=== PATIENT | female | born 1940 | race Caucasian/White ===

== ENCOUNTER → 2021-02-08 | Outpatient (CLI) | payer BC ==
[~2021-02-08] MED LIST: GLUC-11 PO; HYDR-2761 PO; MIRT15TA3 PO; MULT-445 PO; SIMV5TAB14 PO; Vitamin B12 PO
== END ==
LOC: LAB 09:34
PROVIDERS: ATTEND Surgery
DX: Z01.812 Encounter for preprocedural laboratory examination (principal); Z20.822 Contact with and (suspected) exposure to COVID-19; R92.8 Other abnormal and inconclusive findings on diagnostic imaging of breast
CPT/HCPCS: U0003; U0005

== ENCOUNTER 2021-02-10 07:12 | Day surgery (SDC) | payer BC ==
[~2021-02-10] VITALS: Ht 152.4 cm; Wt 44.0 kg
[~2021-02-10 07:12] MED LIST changes: -HYDR-2761 PO; +HYDROmorphone 2 MG/ML VIAL IVP PRN; +IV RINGERS,LACTATED 1000ML 1,000 ML IV SCH; +LIDOCAINE 1% Multi-Dose 20 ML VIAL. INJ ONE; +MORPHINE SULFATE 2 MG/ML VIAL. IVP PRN; +ceFAZolin SODIUM IV Push 1 GM VIAL. IVP PRN; +fentaNYL PF VIAL 100 MCG/2 ML VIAL IVP PRN
[2021-02-10 07:58] VITALS: BP 125/59
[2021-02-10] MEDS ORDERED: BUPIVACAINE-EPI 0.5% 30 ML VIAL KIT. ONE (10:06)
[2021-02-10] MEDS ORDERED: LIDOCAINE 1%/EPI 1:100,000 20 ML VIAL. ONE (10:07)
[2021-02-10] MEDS ORDERED: ONDANSETRON PF 4 MG/2 ML VIAL. ONE (10:15)
[2021-02-10] MEDS ORDERED: LIDOCAINE 2% PF 5 ML VIAL. ONE (10:15)
[2021-02-10] MEDS ORDERED: DEXAMETHASONE SOD PHOS 4 MG/ML VIAL ONE (10:15)
[2021-02-10] MEDS ORDERED: PROPOFOL 10 MG/ML (20ML) VIAL. IV ONE (10:15)
[2021-02-10] MEDS ORDERED: SEVOFLURANE 61 TO 120 MINUTES. IH ONE (10:16)
[2021-02-10] MEDS ORDERED: PHENYLEPHRINE in 0.9% NACL PF 1 MG/10 ML SYRINGE. IV ONE (10:46)
--- NOTE | 2021-02-10 11:32 | PDOC4 ---
Operative Note Operative Note Operative Note: Preoperative Diagnosis: Right breast mass Postoperative Diagnosis: Same Procedure: Excisional right breast biopsy with needle localization Surgeon: [employer] Manager: ALVERTO Morgan Anesthesia: General EBL: 10 mL Specimen: Right breast biopsy to pathology Drains: None Complications: None Indication: The patient is an 80-year-old female who recently underwent a core needle biopsy for a radiographically detected right breast mass. The results were benign but felt by radiology to be discordant. We recommend a wider surgical excisional biopsy. The risks of surgery were discussed which include bleeding, infection, wound healing problems, scar tissue, pain, anesthetic risk, potential need for additional surgery procedure. She understands and would like to proceed. Description: The patient went initially to radiology where she underwent needle localization of the area in question. She was then brought to the operating room and placed supine in the operating table. General anesthesia was performed. The right breast was prepped with ChloraPrep and draped in a standard surgical manner. The wire was exiting in the lateral aspect of the breast at the 9 o'clock position. An adjacent incision was made in the skin lines with a scalpel. Cautery dissection was carried down to the breast paren chyma. The wire was identified and delivered into the wound. With cautery dissection a specimen of breast tissue around the distal portion of the wire was excised without difficulty. The specimen was then sent to radiology and radiographs confirmed the presence of the mass and clip to be present. Hemostasis was achieved with cautery. The subcutaneous tissue was approximated with 3-0 Vicryl. The skin was closed with 4-0 Monocryl. Steri-Strips and a sterile dressing were applied. The patient tolerated the procedure well and was sent to the recovery room in stable condition. At the end of the case all counts were correct. COLE TRINIDAD MD February 10, 2021 11:32
--- NOTE | 2021-02-10 11:35 | DISCH ---
DISCHARGE INSTRUCTIONS Condition on Discharge Condition on Discharge: Stable Activity After Discharge Activity Instructions for Disc: Resume previous activity Diet after Discharge Diet after Discharge: Regular Wound Incision Care Wound/Incision Care: Other, see below (keep dressing clean and dry X 72 hours, may then remove and shower) Follow-Up Follow up with: Dr Trinidad in office in 1 week, call for appointment [phone] COLE TRINIDAD MD February 10, 2021 11:35
[2021-02-10] MEDS ORDERED: HYDROcodone/APAP 5/325MG 1 TAB TABLET PO ONE (12:00)
[2021-02-10] MEDS ORDERED: HYDR-2761 PO (12:01)
[2021-02-10 12:20] VITALS: BP 133/60
--- NOTE | 2021-02-10 12:50 | RAD ---
EXAM: Sonographic guided right breast needle-wire localization; right breast post localization mammog dianna; right breast specimen radiograph. HISTORY: 80-year-old female presents for needle wire localization of a lesion within the 10:00 positi on of the right breast demonstrated on prior sonograms. Sonographic and biopsy of this lesion demonst rated possible discordant pathology results. Surgical excision is performed for definitive diagnosis. TECHNIQUE: The risks of the procedure discussed with the patient and written and verbal consent was o btained. A timeout was performed. Sonographic imaging of the right breast was performed and the lesio n of concern at the 10:00 position was identified. The skin overlying this location was sterilely pre pped, draped and infiltrated with 1 percent lidocaine. A needle-wire system was advanced through the lesion of concern and adjacent to the biopsy clip. The wire was deployed and secured to the skin surf amaris. A post biopsy mammogram demonstrates the wire through the lesion of concern. The biopsy clip is located approximately 3 mm posterior and 5 mm superior distal aspect of the wire proximal to the wire hook. This is adjacent to the lesion of concern. A surgical specimen radiograph demonstrates inclusion of the lesion of concern, clustered calcificati ons and the biopsy clip. IMPRESSION: Successful sonographic guided localization of a mass and adjacent clip within the 10:00 p osition of the right breast and inclusion of the lesion of concern and biopsy clip with a surgical sp ecimen. Electronically signed by: Felicia Ba MD (02/10/2021 12:48 PM) [id number]
--- NOTE | 2021-02-12 14:10 | PATHOLOGY ---
[facility] Accession Number: [id number] . 01 Material submitted: . breast - RIGHT BREAST BIOPSY. Modifiers: right . 01 Clinician provided ICD-10: [id number] . 01 Clinical history: . ABNORMAL MAMMOGRAM, RIGHT BREAST BIOPSY NEEDLE LOCALIZATION . 02 Diagnosis: Breast tissue, wire localized right breast biopsy: - Previous biopsy site showing biopsy clip with scarring, chronic inflammation, and focal cholesterol and foreign body granulomatous reaction. - Fibrocystic changes with the following components: - Stromal fibrosis. - Duct ectasia. - Cystic change. - Apocrine metaplasia, focal. - Sclerosing adenosis, focal. - Few microcalcifications identified. (JPM:shaq; 02/11/2021) [facility] 02/12/2021 0811 Local . 02 Comment: There is no atypia or evidence of malignancy. (JPM:shaq; 02/11/2021) . 02 Electronically signed: . Neal Cervantes MD, Pathologist NPI- [id number] . 01 Gross description: . Fixative: formalin Labeled: Right breast biopsy Specimen received is an intact lumpectomy with a guidewire in situ Oriented: No orientation Dimensions: 5.5 x 4.5 x 0.8 cm Weight: 13 gms . The specimen is inked black and sectioned to reveal predominantly condon-yellow fibrofatty tissue and 10% lundberg white fibrous tissue without obvious lesion. . Biopsy clip: Slice cassette A7 (slice 7 of 15) Uninvolved breast parenchyma: fibrofatty . Entirely sequentially submitted A1-A 15. . The specimen is removed from the patient at 1112 hours and placed in formalin at 1145 hours on Monday, February 10, 2021. The specimen is removed from formalin at 11:30pm. The specimen is in formalin for greater than 6 hours and less than 72 hours. ([facility]; 02/10/2021) [facility] 02/10/2021 1710 Local . 02 Pathologist provided ICD-10: N60.11, N60.31, N60.41, N60.81, N60.21, N61.0 . 02 CPT . 649275 Specimen Comment: A courtesy copy of this report has been sent to [phone] Specimen Comment: Report sent to Performed at: [address] [facility] [address], [place] [id number] MD Audi Mcknight MD Phone: [phone] Performed at: 02 [facility] [address] [place] [id number] MD Neal Cervantes MD Phone: [phone]
== END 2021-02-10 12:47 | disposition home or self-care (01) ==
LOC: SURG 07:12
PROVIDERS: ATTEND Surgery
DX: R92.8 Other abnormal and inconclusive findings on diagnostic imaging of breast (principal); N60.11 Diffuse cystic mastopathy of right breast; N60.41 Mammary duct ectasia of right breast; N60.81 Other benign mammary dysplasias of right breast; N60.21 Fibroadenosis of right breast; E78.00 Pure hypercholesterolemia, unspecified; M19.90 Unspecified osteoarthritis, unspecified site; Z85.3 Personal history of malignant neoplasm of breast; Z79.899 Other long term (current) drug therapy; Z98.890 Other specified postprocedural states; Z88.6 Allergy status to analgesic agent; Z88.8 Allergy status to other drugs, medicaments and biological substances
CPT/HCPCS: 19125; 76098; 76942; 77065; A4209; A6254; A6258; C1819; J0690; J1100; J2370; J2405; J2704; J3490; 88307; A4452